=== PATIENT | female | born 1950 | race Caucasian/White ===

== ENCOUNTER 2016-12-14 11:27 | Observation (INO) | payer OTHER ==
[~2016-12-14] VITALS: Ht 172.7 cm; Wt 75.6 kg
[~2016-12-14 11:27] MED LIST: ATOR20TA15 PO; CHLO4TAB2 PO; DICL1GEL7 TOPICAL; FENO54TA PO; FLUT50SP EACH NARE; HYDR-3516 PO; IBUP200C PO; LEVO50TA4 PO; LOSA50TA PO; NEOSTIGMINE 3 MG/3 ML SYR IV ONE; OMEP20TA PO; ONDANSETRON HCL 4 MG/2 ML VIAL IV PUSH ONE; PROPOFOL 200 MG/20 ML AMP IV ONE; SERT-132 PO; SYMB80AE INH; TRAZ100T4 PO
[2016-12-14] MEDS ORDERED: INSULIN HUMAN REGULAR 1,000 UNITS/10 ML VIAL SQ PRN (12:30)
[2016-12-14] MEDS ORDERED: METOPROLOL TARTRATE 25 MG TAB PO PRN (12:30)
[2016-12-14 12:42] VITALS: BP 139/81; PULSE 90; RESP 16; TEMP 98.2; O2SAT 96
[2016-12-14] MEDS: SODIUM CHLORID 0.9% 500 ML IV SCH (13:00)
[2016-12-14] MEDS: LACTATED RINGER'S 1000 ML IV SCH (13:00)
[2016-12-14] MEDS ORDERED: LIDOCAINE 1%/EPINEPHrine 1:100,000 SOLN 20 ML VIAL ONE (14:14)
[2016-12-14] MEDS ORDERED: BUPIVACAINE/EPINEPHRINE 0.25% 50 ML VIAL ONE (14:19)
[2016-12-14] MEDS ORDERED: ceFAZolin INJ 1,000 MG VIAL ONE ×2 (14:39→14:54)
--- NOTE | 2016-12-14 14:43 | PD.HP.UP ---
H&P Update Note The Pre-Admit History and Physical Examination regarding the above named patient was reviewed (including, but not limited to, vital signs, heart, lungs, co-morbid conditions), and upon re-examination it is noted that: the patient's condition has not significantly changed since the last examination. Vasquez Robertson MD Dec 14, 2016 14:43
[2016-12-14] MEDS ORDERED: DO NOT ADM ANY ANTICOAGULANT DRUGS XX PRN (16:10)
[2016-12-14] MEDS ORDERED: fentaNYL CITRATE 250 MCG/5 ML AMP ONE (16:14)
[2016-12-14] MEDS ORDERED: MORPHINE SULFATE 4 MG/ML INJ ONE ×3 (16:23→17:24)
[2016-12-14] MEDS ORDERED: *MEPERIDINE 25 MG INJ VIAL PERIprocedural Use ONLY ONE (16:23)
[2016-12-14 20:00] VITALS: BP 146/92; PULSE 70; RESP 18; TEMP 98; O2SAT 96
[2016-12-14] MEDS: MORPHINE SULFATE 4 MG/ML INJ IV PRN (20:04)
[2016-12-14] MEDS: LACTATED RINGER'S 1000 ML INJ 1,000 ML IV SCH (20:04)
[2016-12-14] MEDS: ONDANSETRON HCL 4 MG/2 ML VIAL IV PUSH PRN (20:05)
[2016-12-14] MEDS: ceFAZolin 1,000 MG/NS 100 ML IV SCH ×2 (21:56)
[2016-12-14] MEDS: oxyCODONE/ACETAMINOPHEN 5 MG/325 MG TAB PO PRN (21:56)
[2016-12-15] VITALS: BP 104/56; PULSE 69; RESP 16; TEMP 97.1; O2SAT 94
[2016-12-15] MEDS: ONDANSETRON HCL 4 MG/2 ML VIAL IV PUSH PRN (01:22)
[2016-12-15] MEDS: MORPHINE SULFATE 4 MG/ML INJ IV PRN (01:23)
[2016-12-15] MEDS: oxyCODONE/ACETAMINOPHEN 5 MG/325 MG TAB PO PRN ×2 (04:35→09:07)
[2016-12-15] MEDS: ceFAZolin 1,000 MG/NS 100 ML IV SCH ×2 (04:36)
[2016-12-15] MEDS: LACTATED RINGER'S 1000 ML INJ 1,000 ML IV SCH (04:36)
[2016-12-15] MEDS: SODIUM CHLORID 0.9% 500 ML IV SCH (05:40)
[2016-12-15 08:00] VITALS: BP 113/56; PULSE 80; RESP 17; TEMP 97.5; O2SAT 85
[2016-12-15] MEDS ORDERED: PNEUMOCOCCAL POLYVALENT INJ 25 MCG/0.5 ML SYR IM ONE (10:00)
[2016-12-15] MEDS: LACTATED RINGER'S 1000 ML IV SCH (11:34)
[2016-12-15 12:00] VITALS: BP 117/65; PULSE 78; RESP 18; TEMP 98.3; O2SAT 95
[2016-12-15] MEDS ORDERED: IBUPROFEN 200 MG TAB PO PRN (14:45)
--- NOTE | 2016-12-15 16:54 | EKG ---
Date Performed: 12/14/2016 Time Performed: 12:02:38 PTAGE: 65 years EKG: Sinus rhythm NONSPECIFIC T-WAVE ABNORMALITY Compared to prior tracing no significant change BORDERLINE ECG PREVIOUS TRACING : 12/27/2015 11.14 DOCTOR: Daphne Paula Interpretating Date/Time 12/15/2016 16:52:09
[2016-12-15] MEDS ORDERED: ATORVASTATIN 20 MG TAB PO SCH (21:00)
[2016-12-15] MEDS ORDERED: traZODone HCL 100 MG TAB PO SCH (21:00)
[2016-12-15] MEDS ORDERED: FLUTICASONE PROPIONATE 50 MCG/ACT 16 GM NASAL SPRAY NASAL SCH (21:00)
[2016-12-15] MEDS ORDERED: FENOFIBRATE 48 MG TAB PO SCH (21:00)
[2016-12-16] MEDS ORDERED: LEVOTHYROXINE SODIUM 50 MCG TAB PO SCH (06:00)
[2016-12-16] MEDS ORDERED: LOSARTAN 50 MG TAB PO SCH (09:00)
[2016-12-16] MEDS ORDERED: SERTRALINE HCL 50 MG TAB PO SCH (09:00)
[2016-12-16] MEDS ORDERED: PANTOPRAZOLE SOD 20 MG DELAYED RELEASE TAB PO SCH (09:00)
--- NOTE | 2016-12-22 12:47 | MP ---
cc: ANAMIKA COWART M.D. DATE OF SURGERY December 14, 2016 PREOPERATIVE DIAGNOSES Ventral hernia. History of colon cancer. PROCEDURE Exploratory laparotomy with repair of ventral hernia and insertion of mesh. POSTOPERATIVE DIAGNOSES Ventral hernia. History of colon cancer. SURGEON Dr. Anamika Cowart PROCEDURE The patient was placed in the supine position. After adequate general anesthesia, her abdomen was prepped with Betadine solution and draped in the usual sterile fashion. The previous right upper quadrant transverse incision was reopened along the middle portion identifying a hernia sac. The hernia sac was dissected free from the subcutaneous tissues and the fascial neck of the sac was further defined. The hernia sac was then opened and excised from the fascial edges. Additional adhesions to the parietal peritoneum were taken down mobilizing some of the omentum and the bowel off the parietal peritoneum, freeing up the abdominal cavity. No sign of any intraabdominal cancer was noted and the liver appeared to be pretty unremarkable. After further mobilizing the skin flaps above and below the incision for mobilization of the fascia, the defect appeared to be able to close primarily without tension. A piece of Marlex mesh was placed against the parietal peritoneum and it was included in the closure of the incision using a #1 PDS suture to close the fascia in a single layer incorporating the mesh in the running suture. The fascia did appear to come together rather easily and without tension. The subcu tissues were then irrigated copiously, hemostasis achieved. The deep subcu tissue was closed with interrupted Vicryl sutures and the skin closed with a running subcuticular Vicryl suture. The wound area was washed with normal saline and dried, a sterile dressing of Telfa and gauze applied. The patient tolerated the procedure quite well and was brought to the recovery room in stable condition. Sponge and needle counts were correct at the end of the procedure. MD KARL Long/STEFANO /11:19 PM /12:44 PM
--- NOTE | 2016-12-26 15:19 | MH ---
cc: ANAMIKA COWART M.D. DATE OF ADMISSION: 12/14/2016 ADMITTING DIAGNOSIS ventral hernia, history of colon cancer. HISTORY OF PRESENT ILLNESS Ms. Birmingham is a 66-year-old female who underwent resection of a colon cancer about a year ago. She has done well with no signs of recurrence, although she has developed a hernia in her abdominal incision in the right upper quadrant. The hernia seems to reduce easily but has gotten a little bit bigger and a little bit more uncomfortable for the patient. She has no sign of cancer recurrence. After trying an abdominal binder and other conservative treatment, she was admitted at this time for definitive surgical repair of the hernia. Please see her prior admissions for more complete past medical and surgical history. PERTINENT PHYSICAL GENERAL: A very pleasant, well-developed female in no acute distress. ABDOMEN: Abdomen was soft and benign. Hernia was easily palpable in the central portion of her upper transverse incision. No masses appreciated. RECTAL: Anal inspection revealed a benign canal. Digital exam revealed good tone. No masses or tenderness in the vault. IMPRESSION A 66-year-old female status post resection of colon cancer who was found to have a symptomatic ventral hernia. This was treated initially conservatively and then at this point she is requesting operative repair of the hernia. The risks, benefits and alternatives were discussed in great detail with the patient and she will be admitted the day of the procedure and might stay overnight or go home the same day of the surgery. MD KARL Long/RANDELL /2:23 PM /3:06 PM
== END 2016-12-15 15:54 | disposition home or self-care (01) ==
LOC: HSDC 11:27 → N07A 16:00
PROVIDERS: ADMIT Colon & Rectal Surgery; ATTEND Colon & Rectal Surgery
DX: K43.9 Ventral hernia without obstruction or gangrene (principal); K66.0 Peritoneal adhesions (postprocedural) (postinfection); I10 Essential (primary) hypertension; E78.5 Hyperlipidemia, unspecified; Z23 Encounter for immunization
CPT/HCPCS: 00832; 49560; 49568; 90732; 93005; C1781; G0378; J0690; J2175; J2270; J2405; J2710; J3010; J7120

== ENCOUNTER 2018-06-02 06:11 | Observation (INO) ==
[2018-06-02] MEDS ORDERED: Metoprolol Tartrate 25 MG Tablet PO SCH (07:30)
[2018-06-02] MEDS ORDERED: Chlorhexidine Gluconate 2% 1 Pack (2 Cloths) TOPICAL SCH (07:30)
[2018-06-02] MEDS ORDERED: Bupivacaine/Epinephrine Inj 0.25% 50 ML Vial ONE (08:00)
[2018-06-02] MEDS ORDERED: Sodium Chlor 0.9% Inj 500 ML IV.SIG SCH (08:00)
[2018-06-02] MEDS ORDERED: Vancomycin Inj 1 GM/200 ML PIGGYBACK IV.SIG ONE (08:03)
[2018-06-02] MEDS ORDERED: Vancomycin Inj 1 GM/200 ML PIGGYBACK IV.SIG SCH (08:04)
[2018-06-02 08:07] LABS: Baso # (Auto) 0.1 th/mm3 (0.0-0.2); Baso % (Auto) 0.6 % (0.0-2.0); Eos # (Auto) 0.3 th/mm3 (0.0-0.4); Eos % (Auto) 3.5 % (0.0-4.0); Hematocrit 37.4 % (35.0-46.0); Hemoglobin 12.9 gm/dL (11.6-15.3); Lymph # (Auto) 2.1 th/mm3 (1.0-4.8); Lymph % (Auto) 23.8 % (9.0-44.0); Mean Corpuscular HGB Conc 34.4 % (32.0-36.0); Mean Corpuscular Hemoglobin 30.8 pg (27.0-34.0); Mean Corpuscular Volume 89.6 fL (80.0-100.0); Mean Platelet Volume 8.4 fL (7.0-11.0); Mono # (Auto) 0.5 th/mm3 (0.0-0.9); Neut # (Auto) 5.8 th/mm3 (1.8-7.7); Neut % (Auto) 66.1 % (16.0-70.0); Platelet Count 346 th/mm3 (150-450); Red Blood Count 4.17 mil/mm3 (4.00-5.30); Red Cell Distribution Width 13.2 % (11.6-17.2); White Blood Count 8.8 th/mm3 (4.0-11.0)
[2018-06-02 08:29] LABS: Carbon Dioxide 25.8 meq/L (21.0-32.0); Potassium 3.9 meq/L (3.5-5.1)
[2018-06-02] MEDS ORDERED: Sugammadex Inj 200 MG/2 ML Vial IV.PUSH ONE (09:52)
[2018-06-02] MEDS ORDERED: Promethazine 25 MG Supp RECTAL PRN (10:21)
[2018-06-02] MEDS ORDERED: Bisacodyl 10 MG Supp RECTAL PRN (10:21)
[2018-06-02] MEDS ORDERED: Post-op Orders (for Pharmacy) OTHER ONE (10:21)
[2018-06-02] MEDS ORDERED: Morphine Inj 4 MG/ML Vial IV.PUSH PRN ×2 (10:21)
[2018-06-02] MEDS ORDERED: Naloxone Inj 0.4 MG/ML Vial IV.PUSH PRN (10:21)
[2018-06-02] MEDS ORDERED: fentaNYL Citrate Inj 100 MCG/2 ML Ampul ONE (10:29)
[2018-06-02] MEDS ORDERED: KCL 20 mEq/D5W/NaCl 0.9% Inj 1,000 ML ONE (10:45)
[2018-06-02] MEDS: KCL 20 mEq/D5W/NaCl 0.9% Inj 1,000 ML IV.CONT SCH ×2 (10:54→21:45)
[2018-06-02] MEDS ORDERED: *Meperidine Inj 25 MG/ML Vial PERIprocedural Use ONLY ONE (10:56)
--- NOTE | 2018-06-02 11:07 | MP ---
cc: Marbin Ramirez MD DATE OF OPERATION: 06/02/2018 DATE OF PROCEDURE: 06/02/2018 PREOPERATIVE DIAGNOSIS: Recurrent ventral incisional hernia. POSTOPERATIVE DIAGNOSIS: Recurrent ventral incisional hernia. PROCEDURE PERFORMED: 1. Laparoscopic ventral incisional hernia repair with Huxley-Palomo DualMesh (10 x 10). 2. Laparoscopic lysis of adhesions. SURGEON: Marbin Ramirez MD. ANESTHESIA: General endotracheal. COMPLICATIONS: None. INDICATIONS FOR PROCEDURE: Ms. Birmingham is a very pleasant 67-year-old patient who had an upper midline ventral incisional hernia. Her surgical history is remarkable for undergoing a colon resection with Dr. Robertson via a right upper transverse incision. She developed a hernia and Dr. Robertson fixed it with a Marlex mesh. She then developed a recurrence in the midline. She was seen and evaluated in the office and offered a laparoscopic repair as she had already had an open repair. Risks and benefits of laparoscopic repair with mesh was discussed with her and she was agreeable. DETAILS OF PROCEDURE: The patient was identified, brought to the operating room, placed supine on the operating table. After adequate general endotracheal anesthesia was achieved, the abdomen was prepped and draped in standard surgical fashion. The right upper quadrant was anesthetized, skin and subcutaneous tissue. Transverse incision was made. Dissection was carried down through subcutaneous tissue to the anterior abdominal wall fascia. The anterior abdominal wall fascia was then incised transversely. The abdominal wall musculature was then identified and spread along the course of its fibers. The peritoneum was then grasped, elevated, and divided sharply. A finger was then placed in the peritoneal cavity without difficulty. Blunt balloon trocar was inserted. The abdomen was insufflated to 15 mmHg using CO2 gas. Next, a 5 mm trocar was placed in the right lower quadrant under direct vision after anesthetizing the skin and subcutaneous tissue with 0.25% Marcaine. The patient was noted to have a large amount of omental adhesions to an intraabdominal mesh in the upper midline. These were taken down with blunt finger dissection via the 10 mm port site as well as by blunt dissection using a 5 mm grasper. We also placed a 5 mm trocar in the left lower quadrant in order to visualize the omentum from the other side. There was no bowel whatsoever involved in the adhesions. Several small bleeding points on the omentum were controlled with direct pressure or the electrocautery Bovie. Once all the omentum was freed up, we could clearly see the mesh and the defect. The defect was medial to the mesh in the midline. It measured about 3 cm in diameter. We marked out several centimeters in all directions for our mesh. We selected a 10 x 15 piece of Huxley-Palomo mesh and cut it down to a 10 x 10 square. Huxley-Palomo sutures were then placed in the 4 corners in the top, bottom and both sides of the mesh. Mesh was then introduced in the abdominal cavity. Mesh was pulled up to the abdominal wall using the Huxley suture device. We ensured there was generous mesh overlap over the fascial defect in all directions. Once the mesh was approximated up to the abdominal wall with the sutures, the tacking device was used to circumferentially tack the mesh edges. With this, the defect was completely covered and, as stated, there was generous mesh overlap in all directions around the fascial defect. Mesh was photographed in place. Omentum was inspected and there was no bleeding noted. Omentum was then placed over the entire small bowel and then the abdomen was desufflated and the mesh was seen to be touching the omentum only and no bowel. All ports were removed under direct vision. The peritoneum was closed with a 2-0 Vicryl and the abdominal wall fascia was closed with 0 Vicryl. Skin was closed with 4-0 Vicryl. All other port sites were closed with 4-0 Vicryl. The patient tolerated the procedure well, was awakened and brought to the recovery room in stable condition. MD CADE Hdz/SERA , 10:49 AM , 11:06 AM
[2018-06-02] MEDS ORDERED: Phenylephrine/NS 1000 MCG/10ML Syringe IV.PUSH ONE (12:00)
[2018-06-02] MEDS ORDERED: Lidocaine PF 1% Inj 5 ML Syringe INFILTRATN ONE (12:00)
[2018-06-02] MEDS ORDERED: Ketorolac Inj 30 MG/ML (IVP) Vial IV.PUSH ONE (12:00)
--- NOTE | 2018-06-02 13:28 | ECG ---
Date Performed: 06/02/2018 Time Performed: 06:55:51 PTAGE: 67 years EKG: Sinus rhythm NORMAL ECG Since the PREVIOUS TRACING , no significant change noted PREVIOUS TRACIN12/14/2016 12.02 DOCTOR: Guido Jacobson Interpretating Date/Time 06/02/2018 13:21:05
[2018-06-02] MEDS ORDERED: *morphine SULFATE 10 MG/ML PERIprocedure ONLY ONE (13:32)
[2018-06-02] MEDS: Sertraline 50 MG Tablet PO SCH (21:40)
[2018-06-02] MEDS: traZODone 100 MG Tablet PO SCH (21:40)
[2018-06-02] MEDS: Senna/Docusate Sodium 8.6/50 MG Tablet PO SCH (21:41)
[2018-06-02] MEDS: Budesonide-Formoterol 80/4.5 MCG 6.9 GM Inhaler INH SCH (21:44)
[2018-06-03] MEDS: KCL 20 mEq/D5W/NaCl 0.9% Inj 1,000 ML IV.CONT SCH (01:15)
[2018-06-03] MEDS ORDERED: Sertraline 50 MG Tablet PO SCH (09:00)
[2018-06-03] MEDS: Sertraline 50 MG Tablet PO SCH ×2 (09:17→22:03)
[2018-06-03] MEDS: Budesonide-Formoterol 80/4.5 MCG 6.9 GM Inhaler INH SCH ×2 (09:17→22:11)
[2018-06-03] MEDS: Senna/Docusate Sodium 8.6/50 MG Tablet PO SCH ×2 (09:18→22:03)
[2018-06-03] MEDS: Pantoprazole Sodium 20 MG DR Tablet PO SCH (09:19)
[2018-06-03] MEDS: dilTIAZem CD 180 MG Capsule PO SCH (09:19)
--- NOTE | 2018-06-03 10:46 | P.PNGS ---
<Tasha Jang - Last Filed: 06/03/18 10:43> Subjective Interval history: Resting in bed Ate eggs, muffin and fruit for breakfast Still painful when OOB Wants to walk Toure out Physical Exam Vital signs: Vital Signs 06/02/18 10:45 06/02/18 11:00 06/02/18 11:17 Temperature Pulse Rate 88 77 Respiratory Rate 18 15 Blood Pressure 116/55 L 100/50 L Pulse Oximetry 96 94 L 96 06/02/18 12:00 06/02/18 13:00 06/02/18 14:00 Temperature Pulse Rate 78 72 75 Respiratory Rate 14 13 14 Blood Pressure 97/55 L 101/52 L 93/55 L Pulse Oximetry 94 L 94 L 96 06/02/18 15:00 06/02/18 15:21 06/02/18 16:00 Temperature 97.9 F 97.5 F L Pulse Rate 74 71 Respiratory Rate 13 15 18 Blood Pressure 104/54 L 125/55 L Pulse Oximetry 98 94 L 06/02/18 20:30 06/03/18 00:19 06/03/18 05:51 Temperature 97.7 F 97.9 F Pulse Rate 84 72 Respiratory Rate 18 18 18 Blood Pressure 109/57 L 107/57 L Pulse Oximetry 96 98 06/03/18 08:00 Temperature 97.1 F L Pulse Rate 80 Respiratory Rate 20 Blood Pressure 136/103 H Pulse Oximetry 91 L Intake & Output 06/02/18 06/03/18 06/03/18 18:59 06:59 18:59 Intake Total 1300 / 1300 3180 / 3180 Output Total 750 / 750 3200 / 3200 Balance 550 / 550 -20 / -20 Weight 72.1 kg 72 kg Intake: IV 2400 / 2400 D5W/NS + KCL 20 mEq Inj 1,000 2000 / 2000 ML @ 75 mls/hr IV.CONT .[id number] [facility] Rx#:[id number] Vancomycin Inj 1 gm In 200 ml @ 400 / 400 0 mls/hr IV.SIG .STK-MED ONE Rx#:[id number] Oral 780 / 780 Anesthesia Amount 1300 / 1300 Output: Urine Amount (Catheter) 750 / 750 3200 / 3200 Indwelling Urethral Catheter 750 / 750 3200 / 3200 Other: Date of Last Bowel Movement 06/02/18 Weight On Admission 72.1 kg Narrative: Alert and awake resting in bed Cardio: RRR Resp: CTAB Abd: abdominal binder in place--- lap sites c/d/i; adjusted abdominal binder per patient request No edema in BLE - Urinary Catheter Management Indwelling Urethral Catheter Cath placed during this visit: yes, but has since been removed by the nurse Reason for continuing: Decision to DC catheter Insertion date: 06/02/18 Removal date: 06/03/18 Removal time: 06:00 Assessment and Plan - Plan 67 year old female POD1 lap ventral hernia repair -Tolerating regular diet -DC IVF -[place]---added 1 dose Ofirmiv for now -OOB and mobilize -Toure out; + post removal void -Likely home Wednesday vs Wednesday depending on pain control <Terry Herrera - Last Filed: 06/03/18 14:15> Subjective Patient reports: tolerating a regular diet, voiding w/o difficulty Interval history: DAILY PROGRESS NOTE FOR SURGICAL ATTENDING, DR. TERRY HERRERA Physical Exam Vital signs: Vital Signs 06/02/18 15:00 06/02/18 15:21 06/02/18 16:00 Temperature 97.9 F 97.5 F L Pulse Rate 74 71 Respiratory Rate 13 15 18 Blood Pressure 104/54 L 125/55 L Pulse Oximetry 98 94 L 06/02/18 20:30 06/03/18 00:19 06/03/18 05:51 Temperature 97.7 F 97.9 F Pulse Rate 84 72 Respiratory Rate 18 18 18 Blood Pressure 109/57 L 107/57 L Pulse Oximetry 96 98 06/03/18 08:00 06/03/18 12:00 Temperature 97.1 F L 97.9 F Pulse Rate 80 77 Respiratory Rate 20 17 Blood Pressure 136/103 H 121/70 Pulse Oximetry 91 L 92 L Intake & Output 06/02/18 06/03/18 06/03/18 18:59 06:59 18:59 Intake Total 1300 / 1300 3180 / 3180 Output Total 750 / 750 3200 / 3200 Balance 550 / 550 -20 / -20 Weight 72.1 kg 72 kg Intake: IV 2400 / 2400 D5W/NS + KCL 20 mEq Inj 1,000 2000 / 2000 ML @ 75 mls/hr IV.CONT .[id number] [facility] Rx#:[id number] Vancomycin Inj 1 gm In 200 ml @ 400 / 400 0 mls/hr IV.SIG .STK-MED ONE Rx#:[id number] Oral 780 / 780 Anesthesia Amount 1300 / 1300 Output: Urine Amount (Catheter) 750 / 750 3200 / 3200 Indwelling Urethral Catheter 750 / 750 3200 / 3200 Other: Date of Last Bowel Movement 06/02/18 Weight On Admission 72.1 kg - Constitutional no acute distress Comments: Postop - Urinary Catheter Management Indwelling Urethral Catheter Cath placed during this visit: no Assessment and Plan - Attending Attestation NOTE FOR SURGICAL ATTENDING, DR. TERRY HERRERA I agree with above assessment and plan. The exam, history, and the medical decision-making described in the above note were completed with the assistance of the mid-level provider. I reviewed and agree with the findings presented. I attest that I had a [id number] encounter with the patient on the same day, and personally performed and documented my assessment and findings in the medical record. The following services were provided during this hospital visit: Chart data review, vital sign assessments/reviewing monitor data Review of consultations notes if present. Medication orders/review and/or management Ordering and/or reviewing lab tests Ordering and/or interpreting/reviewing x-rays and/or diagnostic studies Care of the patient and discussion of the patient with the care team Documentation time To help prompt me to consider important information that might be impacting today's encounter and assessment, Information from prior notes written by myself or my colleagues may have been "brought forward/copy and pasted" into today's note.
[2018-06-03] MEDS: traZODone 100 MG Tablet PO SCH (22:03)
--- NOTE | 2018-06-04 08:36 | P.PNGS ---
Subjective Patient reports: feels better, pain is less, flatus, no bowel movement Physical Exam Vital signs: Vital Signs 06/03/18 12:00 06/03/18 16:00 06/03/18 20:00 Temperature 97.9 F 97.9 F 97.7 F Pulse Rate 77 77 82 Respiratory Rate 17 16 17 Blood Pressure 121/70 113/62 109/71 Pulse Oximetry 92 L 92 L 92 L 06/04/18 00:00 06/04/18 02:05 06/04/18 02:59 Temperature 97 F L Pulse Rate 80 Respiratory Rate 17 18 18 Blood Pressure 111/76 Pulse Oximetry 92 L 06/04/18 08:00 Temperature 98.0 F Pulse Rate 78 Respiratory Rate 16 Blood Pressure 165/74 H Pulse Oximetry 91 L Intake & Output 06/03/18 06/04/18 06/04/18 18:59 06:59 18:59 Intake Total 1000 / 1000 1340 / 1340 Output Total 1000 / 1000 Balance 1000 / 1000 340 / 340 Intake: IV 1100 / 1100 Ofirmev Inj 1,000 mg In 100 ml 100 / 100 @ 400 mls/hr IV.SIG ONCE ONE Rx #:[id number] LR 1000 mL Inj 1,000 ML @ 30 1000 / 1000 mls/hr IV.SIG .Q24H [facility] Rx#: [id number] Oral 1000 / 1000 240 / 240 Output: Urine 1000 / 1000 Other: # Voids 3 Date of Last Bowel Movement 06/02/18 06/02/18 # Bowel Movements 0 - Routine Respiratory Exam Present: CTA bilaterally - Routine Cardiovascular Exam Present: RRR - Routine Abdominal Exam Present: soft (incisional tenderness, binder in place) - Urinary Catheter Management Indwelling Urethral Catheter Cath placed during this visit: yes, but has since been removed by the nurse Reason for continuing: Decision to DC catheter Insertion date: 06/02/18 Removal date: 06/03/18 Removal time: 06:00 Assessment and Plan - Plan POD 2 Lap ventral hernia repair doing well PLAN reg diet oob pain control po d/c home today
[2018-06-04] MEDS: Pantoprazole Sodium 20 MG DR Tablet PO SCH (08:57)
[2018-06-04] MEDS: Sertraline 50 MG Tablet PO SCH (08:58)
[2018-06-04] MEDS: Senna/Docusate Sodium 8.6/50 MG Tablet PO SCH (08:58)
[2018-06-04] MEDS: dilTIAZem CD 180 MG Capsule PO SCH (08:58)
[2018-06-04] MEDS: Budesonide-Formoterol 80/4.5 MCG 6.9 GM Inhaler INH SCH (08:59)
== END 2018-06-04 12:01 | disposition home or self-care (01) ==
LOC: HSDC 06:11 → HSDI 06:11 → INTOOBSV 10:21 → OBSVTOIN 10:21 → N07 15:27
PROVIDERS: ADMIT Surgery Trauma Surgery; ATTEND Surgery Trauma Surgery